=== PATIENT | male | born 1945 | race Caucasian/White ===

== ENCOUNTER → 2020-03-20 15:58 | Outpatient (BNVA) | payer BC, SELFPAY | PROVIDERS: Family Provider Family Medicine; PCP Family Medicine; Visit Provider Urology | DX: N40.1 Benign prostatic hyperplasia with lower urinary tract symptoms (principal); Z12.5 Encounter for screening for malignant neoplasm of prostate; N13.8 Other obstructive and reflux uropathy | CPT/HCPCS: 81001 ==

== ENCOUNTER 2020-08-08 14:57 | Outpatient (CLI) | payer BC, SELFPAY ==
--- NOTE | 2020-08-08 15:01 | XR_ITS ---
WS: [id number] Exam: XR DEXA axial skeleton* [id number] Date/Time of Exam: 08/08/2020 3:01 PM Reason For Exam: OTHER SPECIFIED DISORDERS OF BONE DENSITY AND STRUCTURES DEXA BONE DENSITOMETRY [employer] The L1-L4 bone mineral density measures 1.326 g/cm2. This corresponds to a T score of 0.9 and Z score of 2.0. Left femoral neck bone mineral density measures 0.895 g/cm2. This corresponds to T score of -1.4 and Z score of -0.2. Right femoral neck bone mineral density measures 0.929 g/cm2. This corresponds to a T score of -1.2 a nd Z score of 0.0. Mean femoral neck bone mineral density measures 0.912 g/cm2. This corresponds to a T score of -1.3 an d Z score of -0.1 XR/XR DEXA axial skeleton* [id number] IMPRESSION: Bone mineral density lies in the osteopenic range. Refer to detailed summary.
== END 2020-08-08 14:58 | disposition home or self-care (01) ==
LOC: RADWPI 14:59
PROVIDERS: PCP Family Medicine; Visit Provider Family Medicine
DX: M85.88 Other specified disorders of bone density and structure, other site (principal)
CPT/HCPCS: 77080

== ENCOUNTER 2021-08-01 08:58 | Outpatient (CLI) | payer MEDICARE, SELFPAY ==
[2021-08-01 09:14] VITALS: BMI 20.7
[2021-08-01 09:17] VITALS: BP 133/75; PULSE 76; RESP 20; TEMP 37.2; O2SAT 99
[2021-08-01 09:53] VITALS: BP 113/71; PULSE 61; RESP 18; TEMP 37.4; O2SAT 99
[2021-08-01 10:53] VITALS: BP 122/75; PULSE 60; RESP 16; TEMP 37.1; O2SAT 98
== END 2021-08-01 08:59 | disposition home or self-care (01) ==
LOC: OPS 09:00
PROVIDERS: PCP Family Medicine; Visit Provider Nurse Practitioner
DX: U07.1 COVID-19 (principal)
CPT/HCPCS: 96365

== ENCOUNTER 2022-03-25 14:13 | Outpatient (CLI) | payer OTHER, SELFPAY ==
[2022-03-25 15:04] LABS: PSA Screen - Urology 0.91 ng/mL (0-4)
== END 2022-03-25 14:14 | disposition home or self-care (01) ==
LOC: LAB 14:14
PROVIDERS: PCP Family Medicine; Visit Provider Urology
DX: Z12.5 Encounter for screening for malignant neoplasm of prostate (principal)
CPT/HCPCS: 36415; 81003; G0103

== ENCOUNTER 2022-08-28 15:28 | Outpatient (CLI) | payer OTHER, SELFPAY ==
--- NOTE | 2022-08-28 16:02 | XR_ITS ---
WS: [id number] DEXA (DUAL ENERGY X-RAY ABSORPTIOMETRY) Bone mineral density was performed using a [employer] machine. HISTORY: OTHER SPECIFIED DISORDERS OF BD AND STRUCTURES COMPARISON: 08/08/2020 Lumbar spine BMD (L1-L4): 1.328 g/cm2 T score: 0.9 Z score: 2.0 Total hip BMD: Left: 0.892 g/cm2. T score: -1.5 Z score: -0.1 Right: 0.896 g/cm2. T score: -1.4 Z score: -0.1 10 year probability of a major osteoporotic fracture is 7.1%. Compared to the prior study from 08/08/2020. Lumbar spine bone mineral density has increased by 0.2%. Bilateral hips bone mineral density has decreased by 2.0%. XR/XR DEXA axial skeleton* [id number] IMPRESSION: OSTEOPENIA based upon the WHO classification for females. Significant but minimal decrease in bone mineral density within the hips since the prior study.
== END 2022-08-28 15:29 | disposition home or self-care (01) ==
LOC: RAD 15:37
PROVIDERS: PCP Family Medicine; Visit Provider Family Medicine
DX: M85.88 Other specified disorders of bone density and structure, other site (principal)
CPT/HCPCS: 77080